=== PATIENT | female | born 1955 | race Caucasian/White ===

== ENCOUNTER 2021-06-09 18:56 | Emergency (ER) | payer SELFPAY ==
[~2021-06-09] VITALS: Ht 167.6 cm; Wt 90.7 kg
[2021-06-09] MEDS ORDERED: IBUPROFEN 600 MG TAB PO ONE (20:00)
[2021-06-09] MEDS ORDERED: ONDANSETRON ODT 4 MG TAB PO ONE (20:45)
[2021-06-09 22:40] VITALS: BP 139/75
== END 2021-06-09 23:21 | disposition home or self-care (01) ==
LOC: ER 18:56
DX: U07.1 COVID-19 (principal); Z88.0 Allergy status to penicillin; Z88.6 Allergy status to analgesic agent
CPT/HCPCS: 36415; 71045; 87426; 99284; Q0162

== ENCOUNTER 2021-06-14 19:17 | Inpatient (IN) | payer BC, MEDICAID, OTHER ==
[~2021-06-14] VITALS: Ht 167.6 cm; Wt 91.6 kg
[2021-06-14] MEDS ORDERED: CHOLECALCIFEROL (VITD3) 2,000 UNIT CAP/TAB PO ONE (20:00)
[2021-06-14] MEDS ORDERED: methylPREDNISolone SOD SUCC 125 MG/2 ML VL IV ONE (20:00)
[2021-06-14] MEDS ORDERED: ASCORBIC ACID 500 MG TAB PO ONE (20:00)
[2021-06-14] MEDS ORDERED: ZINC SULFATE 220mg CAP or TAB PO ONE (20:00)
[2021-06-14] MEDS ORDERED: AZITHROMYCIN 500MG/ 250ML 250 ML IV ONE (20:00)
[2021-06-14] MEDS ORDERED: ONDANSETRON HCL 4 MG/2 ML VIAL IV ONE (20:45)
[2021-06-14 22:24] LABS: Basophils # (auto) 0 10 ^3/uL (0-0.2); Basophils % (auto) 0.2 % (0.0-2.0); Eosinophils # (auto) 0 10 ^3/uL (0-0.8); Hematocrit 47.4 % (36.0-46.0); Lymphocytes # (auto) 1.2 10 ^3/uL (0.4-5.4); Lymphocytes % (auto) 17.3 % (10.0-50.0); Mean Corpuscular Hgb Conc. 33.8 g/dL (32.0-36.0); Mean Corpuscular Volume 88.8 fL (80.0-100.0); Monocytes % (auto) 15.2 % (0.0-12.0); Neutrophils # (auto) 4.5 10 ^3/uL (1.6-8.6); Neutrophils % (auto) 67.3 % (37.0-80.0); Red Blood Cells 5.34 10^6/uL (4.0-5.20); Red Cell Distribution Width 13.8 % (11.8-14.3); White Blood Cell 6.7 10^3/uL (4.4-10.8)
[2021-06-14 23:22] LABS: Albumin 2.9 g/dL (3.4-5.0); BUN/Creatinine Ratio 15.2; Calcium 8.1 mg/dL (8.5-10.1); Potassium 4.1 mmol/L (3.5-5.1)
[2021-06-14 23:24] LABS: Bilirubin, Total 0.6 mg/dL (0.2-1.0); Total Protein 7.6 g/dL (6.4-8.2)
[2021-06-15] MEDS ORDERED: TEMAZEPAM 15 MG CAP PO PRN (04:00)
[2021-06-15] MEDS ORDERED: ACETAMINOPHEN 500 MG TAB PO PRN (04:00)
[2021-06-15] MEDS ORDERED: REMDESIVIR PER PHARMACY 0 ML IV SCH (04:00)
[2021-06-15] MEDS ORDERED: NITROGLYCERIN 0.4 MG SL TAB SL PRN (04:00)
[2021-06-15] MEDS ORDERED: ONDANSETRON HCL 4 MG/2 ML VIAL IV PRN (04:00)
[2021-06-15] MEDS: ALBUTEROL SULF HFA 90MCG INH 200DOSE IN PRN (08:04)
[2021-06-15 08:53] LABS: Magnesium 2.1 mg/dL (1.6-2.6)
[2021-06-15 09:00] VITALS: BP 111/76
[2021-06-15] MEDS ORDERED: REMDESIVIR 200 MG in NS 210ml LOADING DOSE ADULT IV ONE (09:00)
[2021-06-15 09:01] LABS: CRP High Sensitivity 10.1 mg/dL (< 0.3)
[2021-06-15] MEDS ORDERED: ASCORBIC ACID 500 MG TAB PO SCH (10:00)
[2021-06-15] MEDS ORDERED: ZINC SULFATE 220mg CAP or TAB PO SCH (10:00)
[2021-06-15] MEDS: DexAMETHasone SOD PHOS 10MG/1ML VIAL INJ IV SCH (11:03)
[2021-06-15] MEDS: ASCORBIC ACID 1,000 MG TAB PO SCH (11:04)
[2021-06-15] MEDS: ZINC SULFATE 220mg CAP or TAB PO SCH (11:04)
[2021-06-15] MEDS: PANTOPRAZOLE 40 MG TAB PO SCH (11:04)
[2021-06-15] MEDS: CHOLECALCIFEROL (VITD3) 2,000 UNIT CAP/TAB PO SCH (11:05)
[2021-06-15] MEDS: ENOXAPARIN SOD 40 MG/0.4 ML SYRINGE SC SCH ×2 (11:05→21:00)
[2021-06-15] MEDS: ACETAMINOPHEN 500 MG TAB PO PRN (11:06)
[2021-06-15] MEDS ORDERED: IOHEXOL 350 MG/ML 100ML IJ ONE (11:39)
[2021-06-15 13:00] VITALS: BP 115/67
[2021-06-15 13:32] VITALS: BP 101/54
[2021-06-15 16:45] VITALS: BP 113/63
[2021-06-15] MEDS: AZITHROMYCIN 500MG/ 250ML 250 ML IV SCH (21:00)
[2021-06-15 21:15] VITALS: BP 121/70
[2021-06-15 21:25] LABS: Urine Bacteria NONE SEEN /hpf (None Seen); Urine Blood Negative /uL (Negative); Urine Mucus FEW (None Seen); Urine WBC 4 /hpf (0 - 5)
[2021-06-15 21:26] LABS: Urine Specific Gravity > 1.050 (1.001-1.035)
[2021-06-16] MEDS: ALBUTEROL SULF HFA 90MCG INH 200DOSE IN PRN (01:29)
[2021-06-16 05:00] VITALS: BP 127/72
[2021-06-16 07:35] LABS: Basophils # (auto) 0 10 ^3/uL (0-0.2); Basophils % (auto) 0.1 % (0.0-2.0); Eosinophils # (auto) 0 10 ^3/uL (0-0.8); Hematocrit 43.4 % (36.0-46.0); Hemoglobin 14.6 g/dL (12.2-16.2); Lymphocytes # (auto) 1.1 10 ^3/uL (0.4-5.4); Lymphocytes % (auto) 12.8 % (10.0-50.0); Mean Corpuscular Hemoglobin 29.7 pg (28.0-32.0); Mean Corpuscular Hgb Conc. 33.7 g/dL (32.0-36.0); Mean Corpuscular Volume 88.3 fL (80.0-100.0); Monocytes # (auto) 1.4 10 ^3/uL (0-1.3); Monocytes % (auto) 16.2 % (0.0-12.0); Neutrophils # (auto) 6.3 10 ^3/uL (1.6-8.6); Neutrophils % (auto) 70.9 % (37.0-80.0); Nucleated Red Blood Cells % 0.1 %; Red Blood Cells 4.92 10^6/uL (4.0-5.20); Red Cell Distribution Width 13.5 % (11.8-14.3); White Blood Cell 8.9 10^3/uL (4.4-10.8)
[2021-06-16 07:55] LABS: Potassium 4.1 mmol/L (3.5-5.1)
[2021-06-16 08:06] LABS: Albumin 2.4 g/dL (3.4-5.0); Bilirubin, Total 0.4 mg/dL (0.2-1.0); Total Protein 6.9 g/dL (6.4-8.2)
[2021-06-16 09:00] VITALS: BP 138/69
[2021-06-16] MEDS: DexAMETHasone SOD PHOS 10MG/1ML VIAL INJ IV SCH (10:27)
[2021-06-16] MEDS: PANTOPRAZOLE 40 MG TAB PO SCH (10:28)
[2021-06-16] MEDS: CHOLECALCIFEROL (VITD3) 2,000 UNIT CAP/TAB PO SCH (10:28)
[2021-06-16] MEDS: ASCORBIC ACID 1,000 MG TAB PO SCH (10:28)
[2021-06-16] MEDS: ENOXAPARIN SOD 40 MG/0.4 ML SYRINGE SC SCH ×2 (10:28→21:27)
[2021-06-16] MEDS: ZINC SULFATE 220mg CAP or TAB PO SCH (10:28)
[2021-06-16 13:19] VITALS: BP 110/54
[2021-06-16] MEDS: REMDESIVIR 100mg 100 MG in SODIUM CHL 0.9% 230 ML IV SCH (17:00)
[2021-06-16 17:04] VITALS: BP 125/58
[2021-06-16] MEDS: AZITHROMYCIN 500MG/ 250ML 250 ML IV SCH (21:27)
[2021-06-16 22:18] VITALS: BP 117/69
[2021-06-17] MEDS: ALBUTEROL SULF HFA 90MCG INH 200DOSE IN PRN ×2 (00:13→06:01)
[2021-06-17 05:00] VITALS: BP 122/71
[2021-06-17 07:15] LABS: Potassium 4.2 mmol/L (3.5-5.1)
[2021-06-17 07:23] LABS: Albumin 2.3 g/dL (3.4-5.0); BUN/Creatinine Ratio 23.4; Bilirubin, Total 0.6 mg/dL (0.2-1.0)
[2021-06-17 09:00] VITALS: BP 128/70
[2021-06-17] MEDS: ASCORBIC ACID 1,000 MG TAB PO SCH (10:18)
[2021-06-17] MEDS: PANTOPRAZOLE 40 MG TAB PO SCH (10:19)
[2021-06-17] MEDS: DexAMETHasone SOD PHOS 10MG/1ML VIAL INJ IV SCH (10:19)
[2021-06-17] MEDS: ENOXAPARIN SOD 40 MG/0.4 ML SYRINGE SC SCH ×2 (10:19→21:24)
[2021-06-17] MEDS: CHOLECALCIFEROL (VITD3) 2,000 UNIT CAP/TAB PO SCH (10:19)
[2021-06-17] MEDS: ZINC SULFATE 220mg CAP or TAB PO SCH (10:19)
[2021-06-17] MEDS: guaiFENesin-DM 100/10mg/5ml SYR PO PRN ×3 (12:18→22:24)
[2021-06-17 12:41] VITALS: BP 128/68
[2021-06-17] MEDS: REMDESIVIR 100mg 100 MG in SODIUM CHL 0.9% 230 ML IV SCH (15:03)
[2021-06-17 16:58] VITALS: BP 144/74
[2021-06-17] MEDS: AZITHROMYCIN 500MG/ 250ML 250 ML IV SCH (21:23)
[2021-06-17 22:00] VITALS: BP 134/76
[2021-06-18 05:00] VITALS: BP 126/93
[2021-06-18 06:16] LABS: Basophils # (auto) 0 10 ^3/uL (0-0.2); Eosinophils # (auto) 0 10 ^3/uL (0-0.8); Hematocrit 42.4 % (36.0-46.0); Hemoglobin 14.2 g/dL (12.2-16.2); Lymphocytes # (auto) 0.9 10 ^3/uL (0.4-5.4); Lymphocytes % (auto) 9.9 % (10.0-50.0); Mean Corpuscular Hemoglobin 29.8 pg (28.0-32.0); Mean Corpuscular Hgb Conc. 33.5 g/dL (32.0-36.0); Mean Corpuscular Volume 89.1 fL (80.0-100.0); Monocytes # (auto) 1.1 10 ^3/uL (0-1.3); Monocytes % (auto) 11.4 % (0.0-12.0); Neutrophils # (auto) 7.5 10 ^3/uL (1.6-8.6); Neutrophils % (auto) 78.7 % (37.0-80.0); Nucleated Red Blood Cells % 0.1 %; Red Blood Cells 4.76 10^6/uL (4.0-5.20); White Blood Cell 9.5 10^3/uL (4.4-10.8)
[2021-06-18] MEDS: ALBUTEROL SULF HFA 90MCG INH 200DOSE IN PRN ×2 (06:18→23:40)
[2021-06-18 06:42] LABS: Potassium 4.3 mmol/L (3.5-5.1)
[2021-06-18 06:48] LABS: Albumin 2.4 g/dL (3.4-5.0); BUN/Creatinine Ratio 37.3; Bilirubin, Total 0.8 mg/dL (0.2-1.0); Total Protein 6.6 g/dL (6.4-8.2)
[2021-06-18 09:00] VITALS: BP 130/74
[2021-06-18] MEDS: ENOXAPARIN SOD 40 MG/0.4 ML SYRINGE SC SCH ×2 (10:27→20:41)
[2021-06-18] MEDS: ZINC SULFATE 220mg CAP or TAB PO SCH (10:27)
[2021-06-18] MEDS: DexAMETHasone SOD PHOS 10MG/1ML VIAL INJ IV SCH (10:27)
[2021-06-18] MEDS: PANTOPRAZOLE 40 MG TAB PO SCH (10:28)
[2021-06-18] MEDS: CHOLECALCIFEROL (VITD3) 2,000 UNIT CAP/TAB PO SCH (10:28)
[2021-06-18] MEDS: ASCORBIC ACID 1,000 MG TAB PO SCH (10:28)
[2021-06-18 12:34] VITALS: BP 129/67
[2021-06-18] MEDS: REMDESIVIR 100mg 100 MG in SODIUM CHL 0.9% 230 ML IV SCH (15:38)
[2021-06-18] MEDS ORDERED: FLUCONAZOLE 100 MG TAB PO ONE (16:30)
[2021-06-18 16:34] VITALS: BP 136/72
[2021-06-18] MEDS: guaiFENesin-DM 100/10mg/5ml SYR PO PRN (18:31)
[2021-06-18] MEDS: AZITHROMYCIN 500MG/ 250ML 250 ML IV SCH (20:41)
[2021-06-18 22:00] VITALS: BP 148/81
[2021-06-19 05:16] VITALS: BP 139/87
[2021-06-19] MEDS: ALBUTEROL SULF HFA 90MCG INH 200DOSE IN PRN ×2 (06:05→22:52)
[2021-06-19 07:00] LABS: Basophils # (auto) 0 10 ^3/uL (0-0.2); Eosinophils # (auto) 0 10 ^3/uL (0-0.8); Hematocrit 44.4 % (36.0-46.0); Hemoglobin 14.5 g/dL (12.2-16.2); Lymphocytes # (auto) 0.9 10 ^3/uL (0.4-5.4); Lymphocytes % (auto) 8.6 % (10.0-50.0); Mean Corpuscular Hemoglobin 29.3 pg (28.0-32.0); Mean Corpuscular Hgb Conc. 32.7 g/dL (32.0-36.0); Mean Corpuscular Volume 89.5 fL (80.0-100.0); Monocytes # (auto) 1.2 10 ^3/uL (0-1.3); Neutrophils # (auto) 8.5 10 ^3/uL (1.6-8.6); Neutrophils % (auto) 80.4 % (37.0-80.0); Nucleated Red Blood Cells % 0.1 %; Red Blood Cells 4.96 10^6/uL (4.0-5.20); Red Cell Distribution Width 13.6 % (11.8-14.3); White Blood Cell 10.6 10^3/uL (4.4-10.8)
[2021-06-19 07:09] LABS: Potassium 4.8 mmol/L (3.5-5.1)
[2021-06-19 07:20] LABS: Albumin 2.3 g/dL (3.4-5.0); BUN/Creatinine Ratio 32.6; CRP High Sensitivity 7.29 mg/dL (< 0.3); Calcium 8.1 mg/dL (8.5-10.1); Total Protein 6.6 g/dL (6.4-8.2)
[2021-06-19 09:00] VITALS: BP 144/72
[2021-06-19] MEDS: ZINC SULFATE 220mg CAP or TAB PO SCH (09:27)
[2021-06-19] MEDS: DexAMETHasone SOD PHOS 10MG/1ML VIAL INJ IV SCH (09:27)
[2021-06-19] MEDS: ENOXAPARIN SOD 40 MG/0.4 ML SYRINGE SC SCH ×2 (09:28→21:11)
[2021-06-19] MEDS: ASCORBIC ACID 1,000 MG TAB PO SCH (09:28)
[2021-06-19] MEDS: CHOLECALCIFEROL (VITD3) 2,000 UNIT CAP/TAB PO SCH (09:28)
[2021-06-19] MEDS: PANTOPRAZOLE 40 MG TAB PO SCH (09:28)
[2021-06-19 13:00] VITALS: BP 132/71
[2021-06-19] MEDS: REMDESIVIR 100mg 100 MG in SODIUM CHL 0.9% 230 ML IV SCH (14:47)
[2021-06-19 16:47] VITALS: BP 130/67
[2021-06-19] MEDS: AZITHROMYCIN 500MG/ 250ML 250 ML IV SCH (21:10)
[2021-06-19 21:49] VITALS: BP 122/64
[2021-06-20 05:00] VITALS: BP 131/62
[2021-06-20] MEDS: ALBUTEROL SULF HFA 90MCG INH 200DOSE IN PRN (05:50)
[2021-06-20 09:00] VITALS: BP 133/65
[2021-06-20] MEDS: ZINC SULFATE 220mg CAP or TAB PO SCH (09:40)
[2021-06-20] MEDS: PANTOPRAZOLE 40 MG TAB PO SCH (09:40)
[2021-06-20] MEDS: DexAMETHasone SOD PHOS 10MG/1ML VIAL INJ IV SCH (09:40)
[2021-06-20] MEDS: ASCORBIC ACID 1,000 MG TAB PO SCH (09:40)
[2021-06-20] MEDS: CHOLECALCIFEROL (VITD3) 2,000 UNIT CAP/TAB PO SCH (09:40)
[2021-06-20] MEDS: ENOXAPARIN SOD 40 MG/0.4 ML SYRINGE SC SCH ×2 (09:41→21:17)
[2021-06-20] MEDS ORDERED: cefTRIAXone 1GM/50ML D5W 50 ML IV ONE (10:45)
[2021-06-20 10:53] LABS: Urine Bacteria NONE SEEN /hpf (None Seen); Urine Blood Negative /uL (Negative); Urine Specific Gravity 1.023 (1.001-1.035); Urine WBC 2 /hpf (0 - 5)
[2021-06-20] MEDS ORDERED: FUROSEMIDE 20 MG/2 ML VIAL IV ONE (11:00)
[2021-06-20 13:00] VITALS: BP 126/68
[2021-06-20 17:00] VITALS: BP 136/73
[2021-06-20 22:44] VITALS: BP 137/86
[2021-06-21 05:00] VITALS: BP 134/71
[2021-06-21] MEDS: guaiFENesin-DM 100/10mg/5ml SYR PO PRN (06:52)
[2021-06-21 07:47] LABS: Basophils # (auto) 0 10 ^3/uL (0-0.2); Basophils % (auto) 0.1 % (0.0-2.0); Eosinophils # (auto) 0 10 ^3/uL (0-0.8); Hematocrit 49.3 % (36.0-46.0); Hemoglobin 16.7 g/dL (12.2-16.2); Lymphocytes # (auto) 0.7 10 ^3/uL (0.4-5.4); Lymphocytes % (auto) 3.8 % (10.0-50.0); Mean Corpuscular Hemoglobin 30.2 pg (28.0-32.0); Mean Corpuscular Hgb Conc. 33.8 g/dL (32.0-36.0); Mean Corpuscular Volume 89.3 fL (80.0-100.0); Monocytes # (auto) 1.4 10 ^3/uL (0-1.3); Monocytes % (auto) 7.9 % (0.0-12.0); Neutrophils # (auto) 15.6 10 ^3/uL (1.6-8.6); Neutrophils % (auto) 88.2 % (37.0-80.0); Nucleated Red Blood Cells % 0.3 %; Red Blood Cells 5.52 10^6/uL (4.0-5.20); Red Cell Distribution Width 14.2 % (11.8-14.3); White Blood Cell 17.7 10^3/uL (4.4-10.8)
[2021-06-21 08:22] LABS: Potassium 4.5 mmol/L (3.5-5.1)
[2021-06-21 08:30] LABS: BUN/Creatinine Ratio 36.8; Calcium 8.6 mg/dL (8.5-10.1)
[2021-06-21 08:41] VITALS: BP 94/55
[2021-06-21] MEDS: ALBUTEROL SULF HFA 90MCG INH 200DOSE IN PRN ×2 (08:46→18:53)
[2021-06-21] MEDS: ENOXAPARIN SOD 40 MG/0.4 ML SYRINGE SC SCH ×2 (10:00→20:55)
[2021-06-21 10:50] VITALS: BP 130/64
[2021-06-21] MEDS: DexAMETHasone SOD PHOS 10MG/1ML VIAL INJ IV SCH (11:20)
[2021-06-21] MEDS: cefTRIAXone 1GM/50ML D5W 50 ML IV SCH (11:20)
[2021-06-21] MEDS: FUROSEMIDE 20 MG/2 ML VIAL IV SCH (11:20)
[2021-06-21] MEDS: ZINC SULFATE 220mg CAP or TAB PO SCH (11:20)
[2021-06-21] MEDS: ASCORBIC ACID 1,000 MG TAB PO SCH (11:21)
[2021-06-21] MEDS: PANTOPRAZOLE 40 MG TAB PO SCH (11:21)
[2021-06-21] MEDS: CHOLECALCIFEROL (VITD3) 2,000 UNIT CAP/TAB PO SCH (11:21)
[2021-06-21 13:00] VITALS: BP 140/66
[2021-06-21 17:00] VITALS: BP 124/73
[2021-06-21 20:50] VITALS: BP 118/68
[2021-06-22] VITALS (10 sets, daily range): BP systolic 100–118; BP diastolic 55–68
[2021-06-22 07:23] LABS: Basophils # (auto) 0.2 10 ^3/uL (0-0.2); Eosinophils # (auto) 0 10 ^3/uL (0-0.8); Hematocrit 46.6 % (36.0-46.0); Hemoglobin 15.3 g/dL (12.2-16.2); Lymphocytes # (auto) 1.1 10 ^3/uL (0.4-5.4); Lymphocytes % (auto) 5.6 % (10.0-50.0); Mean Corpuscular Hemoglobin 29.5 pg (28.0-32.0); Mean Corpuscular Hgb Conc. 32.9 g/dL (32.0-36.0); Mean Corpuscular Volume 89.8 fL (80.0-100.0); Monocytes # (auto) 1.4 10 ^3/uL (0-1.3); Monocytes % (auto) 7.4 % (0.0-12.0); Neutrophils # (auto) 16.3 10 ^3/uL (1.6-8.6); Red Blood Cells 5.18 10^6/uL (4.0-5.20); Red Cell Distribution Width 13.6 % (11.8-14.3)
[2021-06-22 07:39] LABS: Potassium 4.6 mmol/L (3.5-5.1)
[2021-06-22 07:54] LABS: Calcium 8.8 mg/dL (8.5-10.1)
[2021-06-22] MEDS: cefTRIAXone 1GM/50ML D5W 50 ML IV SCH (09:36)
[2021-06-22] MEDS: FUROSEMIDE 20 MG/2 ML VIAL IV SCH (09:37)
[2021-06-22] MEDS: DexAMETHasone SOD PHOS 10MG/1ML VIAL INJ IV SCH (09:37)
[2021-06-22] MEDS: PANTOPRAZOLE 40 MG TAB PO SCH (09:38)
[2021-06-22] MEDS: ZINC SULFATE 220mg CAP or TAB PO SCH (09:38)
[2021-06-22] MEDS: ENOXAPARIN SOD 40 MG/0.4 ML SYRINGE SC SCH ×2 (09:38→21:10)
[2021-06-22] MEDS: ASCORBIC ACID 1,000 MG TAB PO SCH (09:38)
[2021-06-22] MEDS: CHOLECALCIFEROL (VITD3) 2,000 UNIT CAP/TAB PO SCH (09:38)
[2021-06-22] MEDS: ALBUTEROL SULF HFA 90MCG INH 200DOSE IN PRN (15:23)
[2021-06-23] VITALS (9 sets, daily range): BP systolic 100–115; BP diastolic 55–79
[2021-06-23] MEDS: ACETAMINOPHEN 500 MG TAB PO PRN (00:10)
[2021-06-23 07:12] LABS: Basophils # (auto) 0 10 ^3/uL (0-0.2); Basophils % (auto) 0.1 % (0.0-2.0); Eosinophils # (auto) 0 10 ^3/uL (0-0.8); Hemoglobin 15.3 g/dL (12.2-16.2); Lymphocytes % (auto) 6.1 % (10.0-50.0); Mean Corpuscular Hemoglobin 29.8 pg (28.0-32.0); Mean Corpuscular Hgb Conc. 33.2 g/dL (32.0-36.0); Mean Corpuscular Volume 89.6 fL (80.0-100.0); Monocytes # (auto) 1.5 10 ^3/uL (0-1.3); Monocytes % (auto) 9.1 % (0.0-12.0); Neutrophils # (auto) 13.9 10 ^3/uL (1.6-8.6); Neutrophils % (auto) 84.7 % (37.0-80.0); Red Blood Cells 5.14 10^6/uL (4.0-5.20); Red Cell Distribution Width 13.6 % (11.8-14.3); White Blood Cell 16.4 10^3/uL (4.4-10.8)
[2021-06-23 07:22] LABS: BUN/Creatinine Ratio 67.2; Calcium 8.5 mg/dL (8.5-10.1)
[2021-06-23] MEDS: ALBUTEROL SULF HFA 90MCG INH 200DOSE IN PRN ×2 (07:27→19:09)
[2021-06-23] MEDS: FUROSEMIDE 20 MG/2 ML VIAL IV SCH (10:05)
[2021-06-23] MEDS: cefTRIAXone 1GM/50ML D5W 50 ML IV SCH (10:05)
[2021-06-23] MEDS: DexAMETHasone SOD PHOS 10MG/1ML VIAL INJ IV SCH (10:05)
[2021-06-23] MEDS: PANTOPRAZOLE 40 MG TAB PO SCH (10:06)
[2021-06-23] MEDS: ASCORBIC ACID 1,000 MG TAB PO SCH (10:06)
[2021-06-23] MEDS: CHOLECALCIFEROL (VITD3) 2,000 UNIT CAP/TAB PO SCH (10:06)
[2021-06-23] MEDS: ZINC SULFATE 220mg CAP or TAB PO SCH (10:06)
[2021-06-23] MEDS: ENOXAPARIN SOD 40 MG/0.4 ML SYRINGE SC SCH ×2 (10:07→20:54)
[2021-06-23] MEDS: guaiFENesin-DM 100/10mg/5ml SYR PO PRN (20:54)
[2021-06-24] VITALS (8 sets, daily range): BP systolic 98–120; BP diastolic 53–65
[2021-06-24 05:57] LABS: Hematocrit 48.7 % (36.0-46.0); Hemoglobin 16.2 g/dL (12.2-16.2); Mean Corpuscular Hemoglobin 29.5 pg (28.0-32.0); Mean Corpuscular Hgb Conc. 33.2 g/dL (32.0-36.0); Mean Corpuscular Volume 88.8 fL (80.0-100.0); Red Blood Cells 5.49 10^6/uL (4.0-5.20); Red Cell Distribution Width 13.7 % (11.8-14.3); White Blood Cell 21.5 10^3/uL (4.4-10.8)
[2021-06-24 06:10] LABS: Band Neutrophils % (manual) 0; Basophils % (manual) 0 (0.0-2.0); Blast Cells 0; Eosinophils % (manual) 0 (0-7); Metamyelocytes % 0; Myelocytes % 0; Promyelocytes % 0; Reactive Lymphocytes 0
[2021-06-24 06:22] LABS: BUN/Creatinine Ratio 45.7; Potassium 4.6 mmol/L (3.5-5.1)
[2021-06-24 07:52] LABS: Lymphocytes % (manual) 3 (10.0-50.0); Monocytes % (manual) 3 (0-12)
[2021-06-24] MEDS: cefTRIAXone 1GM/50ML D5W 50 ML IV SCH (10:42)
[2021-06-24] MEDS: FUROSEMIDE 20 MG/2 ML VIAL IV SCH (10:43)
[2021-06-24] MEDS: DexAMETHasone SOD PHOS 10MG/1ML VIAL INJ IV SCH (10:43)
[2021-06-24] MEDS: PANTOPRAZOLE 40 MG TAB PO SCH (10:44)
[2021-06-24] MEDS: ENOXAPARIN SOD 40 MG/0.4 ML SYRINGE SC SCH ×2 (10:44→21:01)
[2021-06-24] MEDS: ASCORBIC ACID 1,000 MG TAB PO SCH (14:50)
[2021-06-24] MEDS: ZINC SULFATE 220mg CAP or TAB PO SCH (14:51)
[2021-06-24] MEDS: CHOLECALCIFEROL (VITD3) 2,000 UNIT CAP/TAB PO SCH (14:51)
[2021-06-24] MEDS ORDERED: dilTIAZem 25 MG/5 ML VIAL IV ONE (23:00)
[2021-06-24] MEDS ORDERED: METOPROLOL TARTRATE 1MG/1ML-5ML VIAL IV ONE ×2 (23:43→23:45)
[2021-06-25] VITALS (99 sets, daily range): BP systolic 69–155; BP diastolic 29–90
[2021-06-25] MEDS ORDERED: ETOMIDATE (2MG/ML) 20ML VIAL IV ONE (00:53)
[2021-06-25] MEDS ORDERED: SUCCINYLCHOLINE CHLORIDE 20 MG/ML 10ML VIAL IV ONE (00:53)
[2021-06-25] MEDS ORDERED: MIDAZOLAM DRIP 50 mg/50mL 50 ML IV ONE ×2 (00:55→00:56)
[2021-06-25] MEDS ORDERED: ACETAMINOPHEN 650 MG RECT SUPP PR PRN (01:10)
[2021-06-25] MEDS: fentaNYL Drip 2500mCg/250mlNS 250 ML IV SCH (01:10)
[2021-06-25] MEDS: MIDAZOLAM DRIP 50 mg/50mL 50 ML IV SCH ×2 (01:15→21:00)
[2021-06-25] MEDS: PROPOFOL 100 ML IV SCH ×3 (01:20→21:00)
[2021-06-25] MEDS ORDERED: fentaNYL Drip 2500mCg/250mlNS 250 ML IV ONE (01:23)
[2021-06-25] MEDS ORDERED: ACETAMINOPHEN 650 MG RECT SUPP PR ONE (01:24)
[2021-06-25] MEDS ORDERED: NOREPINEPHRINE 8 MG/250ML KIT 250 ML IV ONE (01:39)
[2021-06-25] MEDS ORDERED: PROPOFOL 100 ML IV ONE (01:39)
[2021-06-25] MEDS: NOREPINEPHRINE 8 MG/250ML KIT 250 ML IV SCH ×3 (01:40→07:33)
[2021-06-25] MEDS: ACETAMINOPHEN 500 MG TAB PO PRN (02:15)
[2021-06-25] MEDS ORDERED: PHENYLEPHRINE IV 250 ML IV ONE (02:28)
[2021-06-25] MEDS: PHENYLEPHRINE IV 250 ML IV SCH ×3 (03:00→19:40)
[2021-06-25] MEDS: ALBUTEROL SULF 2.5 MG/0.5ML(0.5%) NEB SOLN NEB PRN ×3 (06:00→22:37)
[2021-06-25] MEDS: cefTRIAXone 1GM/50ML D5W 50 ML IV SCH (08:54)
[2021-06-25 10:27] LABS: Hemoglobin 15.3 g/dL (12.2-16.2); Mean Corpuscular Hemoglobin 29.1 pg (28.0-32.0); Mean Corpuscular Hgb Conc. 31.9 g/dL (32.0-36.0); Mean Corpuscular Volume 91.3 fL (80.0-100.0); Red Blood Cells 5.26 10^6/uL (4.0-5.20); Red Cell Distribution Width 14.4 % (11.8-14.3)
[2021-06-25] MEDS: FUROSEMIDE 20 MG/2 ML VIAL IV SCH (10:38)
[2021-06-25] MEDS: DexAMETHasone SOD PHOS 10MG/1ML VIAL INJ IV SCH (10:38)
[2021-06-25] MEDS: ZINC SULFATE 220mg CAP or TAB PO SCH (10:38)
[2021-06-25] MEDS: PANTOPRAZOLE 40 MG TAB PO SCH (10:39)
[2021-06-25] MEDS: METOPROLOL TARTRATE 25 MG TAB PO SCH ×2 (10:39→22:33)
[2021-06-25] MEDS: CHOLECALCIFEROL (VITD3) 2,000 UNIT CAP/TAB PO SCH (10:40)
[2021-06-25] MEDS: ASCORBIC ACID 1,000 MG TAB PO SCH (10:40)
[2021-06-25] MEDS: ENOXAPARIN SOD 40 MG/0.4 ML SYRINGE SC SCH (10:41)
[2021-06-25] MEDS ORDERED: DIGOXIN (250MCG/ML) 2 ML AMPULE IV ONE (10:45)
[2021-06-25] MEDS ORDERED: AMIODARONE HCL 150 MG in D5W 5% 100 ML IV ONE (11:00)
[2021-06-25] MEDS ORDERED: AMIODARONE 450mg/250ml AE 250 ML IV SCH ×2 (11:00→17:00)
[2021-06-25 11:04] LABS: Anion Gap 11 (5-15); BUN/Creatinine Ratio 30.2; Blood Urea Nitrogen 32 mg/dL (7-18); Carbon Dioxide 18 mmol/L (21-32); Chloride 105 mmol/L (98-107); GFR African American 67 mL/min; GFR Non-African American 56 mL/min; Glucose 175 mg/dL (74-106); Potassium 4.3 mmol/L (3.5-5.1); Sodium 134 mmol/L (136-145)
[2021-06-25 11:08] LABS: White Blood Cell 37.3 10^3/uL (4.4-10.8)
[2021-06-25 11:09] LABS: Basophils % (manual) 0 (0.0-2.0); Blast Cells 0; Eosinophils % (manual) 0 (0-7); Metamyelocytes % 0; Myelocytes % 0; Promyelocytes % 0; Reactive Lymphocytes 0
[2021-06-25 11:18] LABS: INR 1.13 (0.9-1.15); Partial Thromboplastin Time 24.2 sec (23.6-33.0)
[2021-06-25 12:47] LABS: Band Neutrophils % (manual) 1; Lymphocytes % (manual) 5 (10.0-50.0); Monocytes % (manual) 7 (0-12)
[2021-06-25] MEDS ORDERED: VANCOMYCIN 1GM/250ML 250 ML IV ONE (13:00)
[2021-06-25] MEDS ORDERED: VANCOMYCIN PER PHARMACY 0 MG IV SCH (13:00)
[2021-06-25] MEDS ORDERED: LIDOCAINE 1% (LOCAL ANESTH.) PF 5ml SDV ID ONE (14:30)
[2021-06-25] MEDS: ENOXAPARIN SOD 80 MG/0.8ML SYRINGE SC SCH (22:33)
[2021-06-25] MEDS: AMIODARONE HCL 200 MG TAB PO SCH (22:33)
[2021-06-25] MEDS: SODIUM CHLOR 0.9% PF (SALINE LOCK) 10ML VIAL/SYR IV SCH (22:33)
[2021-06-26] VITALS (96 sets, daily range): BP systolic 87–129; BP diastolic 32–59
[2021-06-26] MEDS: NOREPINEPHRINE 8 MG/250ML KIT 250 ML IV SCH ×2 (00:57→12:58)
[2021-06-26] MEDS: fentaNYL Drip 2500mCg/250mlNS 250 ML IV SCH ×2 (00:58→13:06)
[2021-06-26] MEDS: MIDAZOLAM DRIP 50 mg/50mL 50 ML IV SCH ×2 (03:40→13:07)
[2021-06-26] MEDS: PHENYLEPHRINE IV 250 ML IV SCH ×3 (03:41→20:40)
[2021-06-26 05:21] LABS: Hematocrit 39.2 % (36.0-46.0); Hemoglobin 12.8 g/dL (12.2-16.2); Mean Corpuscular Hemoglobin 29.4 pg (28.0-32.0); Mean Corpuscular Hgb Conc. 32.6 g/dL (32.0-36.0); Mean Corpuscular Volume 90.4 fL (80.0-100.0); Red Blood Cells 4.34 10^6/uL (4.0-5.20); Red Cell Distribution Width 14.2 % (11.8-14.3); White Blood Cell 28.1 10^3/uL (4.4-10.8)
[2021-06-26 05:23] LABS: Basophils % (manual) 0 (0.0-2.0); Blast Cells 0; Eosinophils % (manual) 0 (0-7); Metamyelocytes % 0; Myelocytes % 0; Promyelocytes % 0; Reactive Lymphocytes 0
[2021-06-26 05:40] LABS: Potassium 4.8 mmol/L (3.5-5.1)
[2021-06-26 05:41] LABS: BUN/Creatinine Ratio 31.9; Calcium 8.7 mg/dL (8.5-10.1)
[2021-06-26] MEDS: PROPOFOL 100 ML IV SCH (06:27)
[2021-06-26 06:59] LABS: Band Neutrophils % (manual) 1; Lymphocytes % (manual) 2 (10.0-50.0); Monocytes % (manual) 1 (0-12)
[2021-06-26] MEDS ORDERED: VANCOMYCIN 1GM/250ML 250 ML IV ONE (08:30)
[2021-06-26] MEDS: ALBUTEROL SULF 2.5 MG/0.5ML(0.5%) NEB SOLN NEB PRN ×3 (08:37→19:05)
[2021-06-26] MEDS: DexAMETHasone SOD PHOS 10MG/1ML VIAL INJ IV SCH (09:55)
[2021-06-26] MEDS: ENOXAPARIN SOD 80 MG/0.8ML SYRINGE SC SCH ×2 (09:55→23:30)
[2021-06-26] MEDS: FUROSEMIDE 20 MG/2 ML VIAL IV SCH (09:55)
[2021-06-26] MEDS: ASCORBIC ACID 1,000 MG TAB PO SCH (09:55)
[2021-06-26] MEDS: SODIUM CHLOR 0.9% PF (SALINE LOCK) 10ML VIAL/SYR IV SCH ×2 (09:56→23:30)
[2021-06-26] MEDS: CHOLECALCIFEROL (VITD3) 2,000 UNIT CAP/TAB PO SCH (09:56)
[2021-06-26] MEDS: PANTOPRAZOLE 40 MG TAB PO SCH (09:56)
[2021-06-26] MEDS: cefTRIAXone 1GM/50ML D5W 50 ML IV SCH (09:56)
[2021-06-26] MEDS: ZINC SULFATE 220mg CAP or TAB PO SCH (09:56)
[2021-06-26] MEDS: METOPROLOL TARTRATE 25 MG TAB PO SCH ×2 (09:56→22:00)
[2021-06-26] MEDS: AMIODARONE HCL 200 MG TAB PO SCH ×2 (10:00→22:00)
[2021-06-26] MEDS: VANCOMYCIN 1GM/250ML 250 ML IV SCH (23:30)
[2021-06-27] VITALS (99 sets, daily range): BP systolic 100–188; BP diastolic 40–89
[2021-06-27] MEDS ORDERED: ATROPINE SULFATE 1 MG/1 ML VIAL ONE ×2 (03:47→23:09)
[2021-06-27] MEDS: PHENYLEPHRINE IV 250 ML IV SCH ×3 (05:00→21:40)
[2021-06-27] MEDS: DexAMETHasone SOD PHOS 10MG/1ML VIAL INJ IV SCH (09:53)
[2021-06-27] MEDS: cefTRIAXone 1GM/50ML D5W 50 ML IV SCH (09:53)
[2021-06-27] MEDS: AMIODARONE HCL 200 MG TAB PO SCH (09:55)
[2021-06-27] MEDS: FUROSEMIDE 20 MG/2 ML VIAL IV SCH (09:55)
[2021-06-27] MEDS: ZINC SULFATE 220mg CAP or TAB PO SCH (09:55)
[2021-06-27] MEDS: METOPROLOL TARTRATE 25 MG TAB PO SCH (09:55)
[2021-06-27] MEDS: PANTOPRAZOLE 40 MG TAB PO SCH (09:56)
[2021-06-27] MEDS: SODIUM CHLOR 0.9% PF (SALINE LOCK) 10ML VIAL/SYR IV SCH ×2 (10:00→22:00)
[2021-06-27] MEDS: ENOXAPARIN SOD 80 MG/0.8ML SYRINGE SC SCH (10:02)
[2021-06-27] MEDS: CHOLECALCIFEROL (VITD3) 2,000 UNIT CAP/TAB PO SCH (10:02)
[2021-06-27] MEDS: ASCORBIC ACID 1,000 MG TAB PO SCH (10:02)
[2021-06-27] MEDS: VANCOMYCIN 1GM/250ML 250 ML IV SCH (10:04)
[2021-06-27] MEDS: MIDAZOLAM DRIP 50 mg/50mL 50 ML IV SCH (10:04)
[2021-06-27] MEDS ORDERED: DOPamine 1600MCG/ML D5W 250 ML IV ONE (11:20)
[2021-06-27] MEDS: DOPamine 1600MCG/ML D5W 250 ML IV SCH (11:30)
[2021-06-28] VITALS (86 sets, daily range): BP systolic 76–155; BP diastolic 29–73
[2021-06-28] MEDS: NOREPINEPHRINE 8 MG/250ML KIT 250 ML IV SCH (01:10)
[2021-06-28] MEDS: fentaNYL Drip 2500mCg/250mlNS 250 ML IV SCH (01:10)
[2021-06-28] MEDS: VANCOMYCIN 1GM/250ML 250 ML IV SCH ×3 (01:25→22:51)
[2021-06-28] MEDS: PROPOFOL 100 ML IV SCH (01:30)
[2021-06-28] MEDS: DOPamine 1600MCG/ML D5W 250 ML IV SCH ×2 (02:49→16:00)
[2021-06-28 04:09] LABS: Basophils # (auto) 0 10 ^3/uL (0-0.2); Basophils % (auto) 0.1 % (0.0-2.0); Eosinophils # (auto) 0 10 ^3/uL (0-0.8); Hematocrit 38.1 % (36.0-46.0); Hemoglobin 12.5 g/dL (12.2-16.2); Lymphocytes # (auto) 0.8 10 ^3/uL (0.4-5.4); Lymphocytes % (auto) 5.5 % (10.0-50.0); Mean Corpuscular Hemoglobin 29.7 pg (28.0-32.0); Mean Corpuscular Hgb Conc. 32.8 g/dL (32.0-36.0); Mean Corpuscular Volume 90.5 fL (80.0-100.0); Monocytes # (auto) 1.4 10 ^3/uL (0-1.3); Neutrophils # (auto) 12.1 10 ^3/uL (1.6-8.6); Neutrophils % (auto) 84.4 % (37.0-80.0); Nucleated Red Blood Cells % 0.2 %; Red Blood Cells 4.21 10^6/uL (4.0-5.20); White Blood Cell 14.3 10^3/uL (4.4-10.8)
[2021-06-28 04:26] LABS: Calcium 8.2 mg/dL (8.5-10.1); Potassium 4.8 mmol/L (3.5-5.1)
[2021-06-28 04:29] LABS: BUN/Creatinine Ratio 47.9
[2021-06-28] MEDS: PHENYLEPHRINE IV 250 ML IV SCH ×3 (06:00→22:40)
[2021-06-28] MEDS: ASPirin 81 mg TAB PO SCH (09:59)
[2021-06-28] MEDS: FUROSEMIDE 20 MG/2 ML VIAL IV SCH (09:59)
[2021-06-28] MEDS: cefTRIAXone 1GM/50ML D5W 50 ML IV SCH (09:59)
[2021-06-28] MEDS: PANTOPRAZOLE 40 MG TAB PO SCH (10:00)
[2021-06-28] MEDS: ZINC SULFATE 220mg CAP or TAB PO SCH (10:00)
[2021-06-28] MEDS: ASCORBIC ACID 1,000 MG TAB PO SCH (10:01)
[2021-06-28] MEDS: ENOXAPARIN SOD 40 MG/0.4 ML SYRINGE SC SCH (10:01)
[2021-06-28] MEDS: CHOLECALCIFEROL (VITD3) 2,000 UNIT CAP/TAB PO SCH (10:01)
[2021-06-28] MEDS: SODIUM CHLOR 0.9% PF (SALINE LOCK) 10ML VIAL/SYR IV SCH ×2 (10:20→22:51)
[2021-06-28] MEDS ORDERED: TOCILIZUMAB 400 MG in SODIUM CHL 0.9% 80 ML IV SCH (15:00)
[2021-06-28] MEDS: MIDAZOLAM DRIP 50 mg/50mL 50 ML IV SCH (16:01)
[2021-06-28] MEDS ORDERED: Vital High Protein 1liter Bottle GT SCH (16:45)
[2021-06-28] MEDS ORDERED: PANTOPRAZOLE 40 MG/10 ML VIAL INJ IV ONE (16:45)
[2021-06-28] MEDS: ALBUTEROL SULF 2.5 MG/0.5ML(0.5%) NEB SOLN NEB SCH (18:00)
[2021-06-28] MEDS ORDERED: ROCURONIUM 10MG/ML 10ML VIAL IV ONE (18:13)
[2021-06-28] MEDS: ROCURONIUM 10MG/ML 10ML VIAL IV PRN (18:15)
[2021-06-28] MEDS ORDERED: DEXTROSE 50% SYRINGE 50 ML IV ONE (18:24)
[2021-06-28] MEDS ORDERED: DEXTROSE (50%) 50ML SYRG IV ONE (18:45)
[2021-06-28] MEDS: BUDESONIDE (INHALATION) 0.5 MG/2 ML NEB NEB SCH (22:00)
[2021-06-29] VITALS (82 sets, daily range): BP systolic 78–162; BP diastolic 29–84
[2021-06-29] MEDS: fentaNYL Drip 2500mCg/250mlNS 250 ML IV SCH ×3 (01:10→19:47)
[2021-06-29] MEDS: NOREPINEPHRINE 8 MG/250ML KIT 250 ML IV SCH ×2 (01:10→13:36)
[2021-06-29] MEDS: MIDAZOLAM DRIP 50 mg/50mL 50 ML IV SCH ×3 (01:10→12:54)
[2021-06-29] MEDS: PROPOFOL 100 ML IV SCH (01:30)
[2021-06-29 04:11] LABS: Basophils # (auto) 0 10 ^3/uL (0-0.2); Basophils % (auto) 0.2 % (0.0-2.0); Eosinophils # (auto) 0.1 10 ^3/uL (0-0.8); Eosinophils % (auto) 0.8 % (0.0-7.0); Hematocrit 35.5 % (36.0-46.0); Hemoglobin 11.6 g/dL (12.2-16.2); Lymphocytes # (auto) 1.7 10 ^3/uL (0.4-5.4); Lymphocytes % (auto) 9.7 % (10.0-50.0); Mean Corpuscular Hgb Conc. 32.8 g/dL (32.0-36.0); Mean Corpuscular Volume 91.5 fL (80.0-100.0); Monocytes # (auto) 2.5 10 ^3/uL (0-1.3); Monocytes % (auto) 14.5 % (0.0-12.0); Neutrophils # (auto) 12.9 10 ^3/uL (1.6-8.6); Neutrophils % (auto) 74.8 % (37.0-80.0); Red Blood Cells 3.88 10^6/uL (4.0-5.20); Red Cell Distribution Width 14.1 % (11.8-14.3); White Blood Cell 17.2 10^3/uL (4.4-10.8)
[2021-06-29 04:31] LABS: BUN/Creatinine Ratio 39.7; Calcium 8.2 mg/dL (8.5-10.1)
[2021-06-29] MEDS: PHENYLEPHRINE IV 250 ML IV SCH ×2 (07:00→10:46)
[2021-06-29] MEDS: cefTRIAXone 1GM/50ML D5W 50 ML IV SCH (08:32)
[2021-06-29] MEDS: ALBUTEROL SULF 2.5 MG/0.5ML(0.5%) NEB SOLN NEB SCH ×2 (08:38)
[2021-06-29] MEDS: DOPamine 1600MCG/ML D5W 250 ML IV SCH (08:57)
[2021-06-29] MEDS: VANCOMYCIN 1GM/250ML 250 ML IV SCH ×2 (09:11→22:36)
[2021-06-29] MEDS: ENOXAPARIN SOD 40 MG/0.4 ML SYRINGE SC SCH (09:11)
[2021-06-29] MEDS: ASPirin 81 mg TAB PO SCH (09:12)
[2021-06-29] MEDS: ASCORBIC ACID 1,000 MG TAB PO SCH (09:12)
[2021-06-29] MEDS: CHOLECALCIFEROL (VITD3) 2,000 UNIT CAP/TAB PO SCH (09:12)
[2021-06-29] MEDS: PANTOPRAZOLE 40 MG/10 ML VIAL INJ IV SCH (09:13)
[2021-06-29] MEDS: FUROSEMIDE 20 MG/2 ML VIAL IV SCH (09:13)
[2021-06-29] MEDS: ZINC SULFATE 220mg CAP or TAB PO SCH (09:13)
[2021-06-29] MEDS: SODIUM CHLOR 0.9% PF (SALINE LOCK) 10ML VIAL/SYR IV SCH ×2 (09:14→22:36)
[2021-06-29] MEDS ORDERED: SODIUM CHLORIDE 0.9% 1,000 ML IV ONE (10:45)
[2021-06-29] MEDS: ALBUMIN 25% 100 ML IV SCH ×2 (12:22→18:00)
[2021-06-29] MEDS ORDERED: LIDOCAINE 2%HCL (LOCAL ANESTH.) INJ 20ML MDV ONE ×2 (12:56→15:59)
[2021-06-29] MEDS: dilTIAZem 125mg/125ml BAG KIT 125 ML IV SCH ×2 (17:00→19:38)
[2021-06-29] MEDS ORDERED: dilTIAZem 25 MG/5 ML VIAL IV ONE (17:00)
[2021-06-29] MEDS: ROCURONIUM 10MG/ML 10ML VIAL IV PRN (17:48)
[2021-06-29] MEDS: DIGOXIN (250MCG/ML) 2 ML AMPULE IV SCH ×3 (18:00→20:24)
[2021-06-29] MEDS: ALBUTEROL SULF 2.5 MG/0.5ML(0.5%) NEB SOLN NEB PRN (22:43)
[2021-06-29] MEDS: BUDESONIDE (INHALATION) 0.5 MG/2 ML NEB NEB SCH (22:43)
[2021-06-30] VITALS (83 sets, daily range): BP systolic 77–127; BP diastolic 31–71
[2021-06-30] MEDS: DOPamine 1600MCG/ML D5W 250 ML IV SCH ×2 (00:01→15:05)
[2021-06-30] MEDS: PHENYLEPHRINE IV 250 ML IV SCH ×2 (01:15→09:18)
[2021-06-30] MEDS: PROPOFOL 100 ML IV SCH ×4 (01:30→22:28)
[2021-06-30] MEDS: ALBUMIN 25% 100 ML IV SCH (02:37)
[2021-06-30 04:45] LABS: Basophils # (auto) 0.1 10 ^3/uL (0-0.2); Basophils % (auto) 0.6 % (0.0-2.0); Eosinophils # (auto) 0.8 10 ^3/uL (0-0.8); Eosinophils % (auto) 3.3 % (0.0-7.0); Hematocrit 35.3 % (36.0-46.0); Hemoglobin 11.4 g/dL (12.2-16.2); Lymphocytes # (auto) 1.6 10 ^3/uL (0.4-5.4); Lymphocytes % (auto) 6.8 % (10.0-50.0); Mean Corpuscular Hemoglobin 30.7 pg (28.0-32.0); Mean Corpuscular Hgb Conc. 32.2 g/dL (32.0-36.0); Mean Corpuscular Volume 95.1 fL (80.0-100.0); Monocytes # (auto) 1.7 10 ^3/uL (0-1.3); Monocytes % (auto) 7.3 % (0.0-12.0); Neutrophils # (auto) 19.2 10 ^3/uL (1.6-8.6); Nucleated Red Blood Cells % 0.3 %; Red Blood Cells 3.71 10^6/uL (4.0-5.20); Red Cell Distribution Width 15.3 % (11.8-14.3); White Blood Cell 23.4 10^3/uL (4.4-10.8)
[2021-06-30] MEDS: BUDESONIDE (INHALATION) 0.5 MG/2 ML NEB NEB SCH ×2 (06:22→18:41)
[2021-06-30] MEDS: ALBUTEROL SULF 2.5 MG/0.5ML(0.5%) NEB SOLN NEB PRN ×2 (06:22→18:41)
[2021-06-30] MEDS ORDERED: SODIUM BICARBONATE 8.4% INJ 50ML SYRINGE ONE (07:25)
[2021-06-30] MEDS ORDERED: SODIUM BICARBONATE 8.4 % INJ 50ML VIAL IV ONE (07:30)
[2021-06-30] MEDS: PANTOPRAZOLE 40 MG/10 ML VIAL INJ IV SCH (10:00)
[2021-06-30] MEDS ORDERED: DIGOXIN (250MCG/ML) 2 ML AMPULE IV SCH (10:00)
[2021-06-30] MEDS: ASCORBIC ACID 1,000 MG TAB PO SCH (10:03)
[2021-06-30] MEDS: cefTRIAXone 1GM/50ML D5W 50 ML IV SCH (10:03)
[2021-06-30] MEDS: ENOXAPARIN SOD 40 MG/0.4 ML SYRINGE SC SCH (10:04)
[2021-06-30] MEDS: CHOLECALCIFEROL (VITD3) 2,000 UNIT CAP/TAB PO SCH (10:04)
[2021-06-30] MEDS: ASPirin 81 mg TAB PO SCH (10:05)
[2021-06-30] MEDS: ZINC SULFATE 220mg CAP or TAB PO SCH (10:05)
[2021-06-30] MEDS: SODIUM CHLOR 0.9% PF (SALINE LOCK) 10ML VIAL/SYR IV SCH ×2 (10:06→21:57)
[2021-06-30] MEDS: VANCOMYCIN 1GM/250ML 250 ML IV SCH (10:36)
[2021-06-30] MEDS: fentaNYL Drip 2500mCg/250mlNS 250 ML IV SCH ×2 (10:51→18:53)
[2021-06-30 11:18] LABS: Anion Gap 10 (5-15); BUN/Creatinine Ratio 11.5; Blood Urea Nitrogen 18 mg/dL (7-18); Calcium 7.1 mg/dL (8.5-10.1); Carbon Dioxide 17 mmol/L (21-32); Chloride 114 mmol/L (98-107); GFR African American 43 mL/min; GFR Non-African American 35 mL/min; Glucose 90 mg/dL (74-106); Sodium 141 mmol/L (136-145)
[2021-06-30] MEDS ORDERED: SODIUM CHLORIDE 0.9% 1,000 ML IV ONE (11:30)
[2021-06-30] MEDS ORDERED: FUROSEMIDE 100 MG/10ML VIAL IV ONE (11:30)
[2021-06-30 11:57] LABS: Potassium 5.9 mmol/L (3.5-5.1)
[2021-06-30] MEDS ORDERED: SODIUM BICARBONATE 8.4% INJ 50ML SYRINGE IV ONE (12:15)
[2021-06-30] MEDS ORDERED: DEXTROSE (50%) 50ML SYRG IV ONE (12:15)
[2021-06-30] MEDS ORDERED: InsuLIN REG 1unit/0.01ml Soln (100units/ml) IV ONE (12:15)
[2021-06-30] MEDS: NOREPINEPHRINE BITARTRATE 32 MG in SODIUM CHL 0.9% 218 ML IV SCH (13:00)
[2021-06-30] MEDS: PHENYLEPHRINE INJ 40 MG in SODIUM CHL 0.9% 246 ML IV SCH ×3 (13:00→22:24)
[2021-06-30] MEDS: SODIUM BICARBONATE 50ML VIAL 150 ML in D5W 5% 1,000 ML IV SCH (13:29)
[2021-06-30] MEDS: dilTIAZem 125mg/125ml BAG KIT 125 ML IV SCH (17:00)
[2021-06-30] MEDS ORDERED: TOCILIZUMAB 400 MG in SODIUM CHL 0.9% 80 ML IV ONE (17:00)
[2021-06-30 17:33] LABS: Albumin 1.9 g/dL (3.4-5.0); BUN/Creatinine Ratio 10.5; Calcium 6.2 mg/dL (8.5-10.1); Potassium 4.3 mmol/L (3.5-5.1)
[2021-06-30 17:36] LABS: Bilirubin, Total 0.5 mg/dL (0.2-1.0); Total Protein 4.5 g/dL (6.4-8.2)
[2021-06-30 17:38] LABS: Bilirubin, Direct 0.3 mg/dL (0-0.2); Bilirubin, Total 0.5 mg/dL (0.2-1.0); Total Protein 4.5 g/dL (6.4-8.2)
[2021-06-30] MEDS: FUROSEMIDE INJECTION 100 MG in D5W 5% 100 ML IV SCH (18:09)
[2021-06-30] MEDS: MIDAZOLAM DRIP 50 mg/50mL 50 ML IV SCH (22:26)
[2021-07-01] VITALS (54 sets, daily range): BP systolic 85–130; BP diastolic 17–98
[2021-07-01] MEDS: SODIUM BICARBONATE 50ML VIAL 150 ML in D5W 5% 1,000 ML IV SCH ×2 (00:34→11:30)
[2021-07-01] MEDS: NOREPINEPHRINE BITARTRATE 32 MG in SODIUM CHL 0.9% 218 ML IV SCH ×2 (02:29→20:15)
[2021-07-01] MEDS: fentaNYL Drip 2500mCg/250mlNS 250 ML IV SCH ×2 (02:32→20:21)
[2021-07-01] MEDS: MIDAZOLAM DRIP 50 mg/50mL 50 ML IV SCH ×4 (02:35→20:25)
[2021-07-01] MEDS: DOPamine 1600MCG/ML D5W 250 ML IV SCH (06:09)
[2021-07-01] MEDS: PROPOFOL 100 ML IV SCH ×5 (07:00→20:24)
[2021-07-01] MEDS: PHENYLEPHRINE INJ 40 MG in SODIUM CHL 0.9% 246 ML IV SCH ×3 (07:35→20:24)
[2021-07-01] MEDS ORDERED: VASOPRESSIN 20 UNIT/ML ONE (07:50)
[2021-07-01] MEDS ORDERED: TOCILIZUMAB 400 MG in SODIUM CHL 0.9% 80 ML IV ONE (08:00)
[2021-07-01] MEDS: VASOPRESSIN 50 UNITS in D5W 5% 247.5 ML IV SCH ×2 (08:15→20:20)
[2021-07-01] MEDS: EPINEPHrine HCL 250 ML IV SCH ×2 (08:15→17:03)
[2021-07-01] MEDS ORDERED: DOPamine 1600MCG/ML D5W 250 ML IV SCH (08:15)
[2021-07-01] MEDS: BUDESONIDE (INHALATION) 0.5 MG/2 ML NEB NEB SCH ×2 (08:35→18:38)
[2021-07-01] MEDS: cefTRIAXone 1GM/50ML D5W 50 ML IV SCH ×2 (09:00→10:43)
[2021-07-01] MEDS: ENOXAPARIN SOD 40 MG/0.4 ML SYRINGE SC SCH (10:00)
[2021-07-01] MEDS: PANTOPRAZOLE 40 MG/10 ML VIAL INJ IV SCH (10:00)
[2021-07-01] MEDS: ASPirin 81 mg TAB PO SCH (10:00)
[2021-07-01] MEDS ORDERED: DIGOXIN (250MCG/ML) 2 ML AMPULE IV SCH (10:00)
[2021-07-01] MEDS: SODIUM CHLOR 0.9% PF (SALINE LOCK) 10ML VIAL/SYR IV SCH ×2 (10:00→20:22)
[2021-07-01] MEDS: FUROSEMIDE INJECTION 100 MG in D5W 5% 100 ML IV SCH (12:30)
[2021-07-01] MEDS: ALBUTEROL SULF 2.5 MG/0.5ML(0.5%) NEB SOLN NEB PRN ×2 (14:54→18:38)
[2021-07-02] VITALS: BP 102/33
[2021-07-02] MEDS ORDERED: EPINEPHrine HCL 1 MG/1 ML AMP ONE ×2 (00:31→00:32)
[2021-07-02] MEDS ORDERED: EPINEPHrine HCL 1 MG/10 ML SYRG ONE (00:33)
[2021-07-02] MEDS: SODIUM BICARBONATE 50ML VIAL 150 ML in D5W 5% 1,000 ML IV SCH (01:59)
[2021-07-02 02:24] VITALS: BP 144/81
[2021-07-02] MEDS ORDERED: PHENYLEPHRINE IV 250 ML IV ONE (03:01)
[2021-07-02] MEDS ORDERED: PHENYLEPHRINE HCL 10 MG/ML VL ONE (03:04)
[2021-07-02] MEDS ORDERED: EPINEPHrine HCL 1 MG/10 ML SYRG IV ONE (07:01)
[2021-07-02] MEDS ORDERED: SODIUM BICARBONATE 8.4% INJ 50ML SYRINGE IV ONE (07:01)
[2021-07-02] MEDS ORDERED: NOREPINEPHRINE 8 MG/250ML KIT 250 ML IV ONE (11:40)
== END 2021-07-02 07:02 | DRG 870 ==
LOC: EDBD 19:17 → ER 19:22 → TELE 06-15 04:00 → TELE-EAST 06-15 09:16 → TELE-E-ADS 06-21 11:07 → ICU WEST 06-25 01:55
PROVIDERS: ADMIT Nurse Practitioner; ATTEND Internal Medicine
PROC: XW033E5 Introduction of Remdesivir Anti-infective into Peripheral Vein, Percutaneous Approach, New Technology Group 5 (ICD-10-PCS; 2021-06-15)
PROC: 5A0945A Assistance with Respiratory Ventilation, 24-96 Consecutive Hours, High Flow/Velocity Cannula (ICD-10-PCS; 2021-06-21)
PROC: 5A09357 Assistance with Respiratory Ventilation, Less than 24 Consecutive Hours, Continuous Positive Airway Pressure (ICD-10-PCS; 2021-06-24)
PROC: 5A1955Z Respiratory Ventilation, Greater than 96 Consecutive Hours (ICD-10-PCS; principal; 2021-06-25)
PROC: 0BH17EZ Insertion of Endotracheal Airway into Trachea, Via Natural or Artificial Opening (ICD-10-PCS; 2021-06-25)
PROC: 02HK3JZ Insertion of Pacemaker Lead into Right Ventricle, Percutaneous Approach (ICD-10-PCS; 2021-06-29)
PROC: 5A1213Z Performance of Cardiac Pacing, Intermittent (ICD-10-PCS; 2021-06-29)
DX: A41.89 Other specified sepsis (principal); U07.1 COVID-19; J12.82 Pneumonia due to coronavirus disease 2019; R65.21 Severe sepsis with septic shock; J80 Acute respiratory distress syndrome; N17.0 Acute kidney failure with tubular necrosis; Z99.11 Dependence on respirator [ventilator] status; D89.839 Cytokine release syndrome, grade unspecified; E87.5 Hyperkalemia; I46.9 Cardiac arrest, cause unspecified; I44.0 Atrioventricular block, first degree; E66.9 Obesity, unspecified; I48.91 Unspecified atrial fibrillation; I49.5 Sick sinus syndrome; Z68.32 Body mass index [BMI] 32.0-32.9, adult; Z88.5 Allergy status to narcotic agent; Z88.0 Allergy status to penicillin; Z90.710 Acquired absence of both cervix and uterus
CPT/HCPCS: 36415; 36569; 36600; 71045; 71275; 80048; 80053; 80076; 80202; 81001; 82565; 82728; 82805; 82962; 83605; 83615; 83735; 83880; 84443; 84484; 85007; 85025; 85027; 85379; 85610; 85730; 86141; 87040; 87070; 87081; 87086; 87205; 87426; 93005; 93306; 93970; 94002; 94003; 94640; 94660; 96365; 96375; 99152; C1751; C9113; G0378; J0171; J0330; J0461; J0696; J1100; J2250; J2405; J2704; J7060; P9047